=== PATIENT | male | born 1995 | race Hispanic/Latino ===

== ENCOUNTER 2024-06-25 09:15 | Emergency (ER) | payer OTHER, SELFPAY ==
[2024-06-25 09:19] VITALS: BP 167/91
--- NOTE | 2024-06-25 09:52 | ED.GENMED ---
History of Present Illness
General
Chief Complaint: Anal/Rectal Problem
Source: electric meter reader ([id number])
Time Seen by Provider: 06/25/24 09:40
History of Present Illness
History of Present Illness:
29-year-old man with history of asthma, GERD, obesity presenting to the emergency department with rectal pain. Patient states that yesterday he noticed a lump to his rectum. Since then it has been extremely uncomfortable. He is having to sitting.
No fevers or chills. No bloody stools. No blood when he wipes. No abdominal pain. No history of constipation. This is never happened to him before.
Past History
Past History
ED Past Medical History: None
ED Past Surgical History: None
Social History
Tobacco: Non-smoker
Alcohol: None
Phy Exam
Physical Exam
Physical Exam:
GENERAL: in no acute distress
HEENT: normocephalic, extraocular movements intact, moist oral mucosa
NECK: normal inspection
RESPIRATORY: no respiratory distress, clear to auscultation bilaterally
CARDIOVASCULAR: regular rate and rhythm
ABDOMEN/: soft, non-distended, non-tender to palpation, no rebound or guarding
Rectum: Chaperoned by RN: External hemorrhoid at the 7 o'clock position that is not thrombosed. No bleeding. No palpable internal hemorrhoids.
EXTREMITIES: non-tender, no edema/swelling
NEUROLOGIC: awake and alert, moves all extremities
SKIN: warm
Course
Vital Signs
Initial and Last Documented VS:
Initial Vital Signs
Temp Pulse Resp BP Pulse Ox
98.2 F 86 16 167/91 98
06/25/24 09:19 06/25/24 09:19 06/25/24 09:19 06/25/24 09:19 06/25/24 09:19
Last Documented Vital Signs
Temp Pulse Resp BP Pulse Ox
98.2 F 86 16 167/91 98
06/25/24 09:19 06/25/24 09:19 06/25/24 09:19 06/25/24 09:19 06/25/24 09:19
MDM/Problems Addressed
Differential Diagnosis Includes:
Patient is a 29-year-old man with history of asthma, reflux, obesity presenting to the emergency department rectal pain. Vitals are unremarkable and exam does show a nonthrombosed external hemorrhoid. Exam not consistent with rectal prolapse. No
active bleeding. Patient provided with education on hemorrhoid treatment including sitz bath and cream. Will give free clinic follow-up. All questions answered. Patient stable for discharge at this time.
*Critical Care Note
Total Time (30-74mins, 75-104mins- exclusive of procedures): Not Applicable
ED Attending Note
-
Portions of this chart may have been created with voice recognition software.� Occasional wrong word or��sound alike� substitutions may have occurred due to the inherent limitations of voice recognition software.
Discharge Plan
Departure
Patient Disposition: Home (Routine Discharge)
Date of Disposition: 06/25/24
Time of Disposition: 09:57
Patient with high blood pressure during this ER visit?: No
Discharge Problem:
External hemorrhoid
Instructions: How to Do a Sitz Bath, Hemorrhoids ED
Prescriptions:
No Action
hydrocodone-acetaminophen 1 TABLET tablet
1 tab PO Q4HPRN PRN (Reason: severe pain) Qty: 10 0RF
amoxicillin-pot clavulanate 1 TABLET tablet
1 tab PO Q12 Qty: 20 0RF
ibuprofen 600 MG tablet
600 mg PO TID Qty: 24 0RF
Referrals:
[facility] [Outside]
Activity Restrictions/Additional Instructions:
Please follow the instructions that were printed from up-to-date regarding the treatments that you can get [id number] from the pharmacy. Please do a sitz bath a few times a day. Please call the [facility] for follow-up.
Interventions
Interventions:
*Risk Screen - Suicide Last Done: 06/25/24 09:59
*General Assessment Last Done: 06/25/24 09:59
*Neglect/Abuse Screening Last Done: 06/25/24 09:59
ED- Fall Risk Assessment Last Done: 06/25/24 09:59
*ED COVID-19 Vaccine History Last Done: 06/25/24 09:59
ED-Skin Assessment Last Done: 06/25/24 09:59
Discharge Date and Time
Print Language: TANZANIAN
[2024-06-25 10:15] VITALS: BP 126/75
== END 2024-06-25 10:16 | disposition home or self-care (01) ==
LOC: EMR 09:15
PROVIDERS: EMERGENCY PHYSICIAN Student in an Organized Health Care Education/Training Program
DX: K64.4 Residual hemorrhoidal skin tags (principal); J45.909 Unspecified asthma, uncomplicated; K21.9 Gastro-esophageal reflux disease without esophagitis
CPT/HCPCS: 99282